=== PATIENT | female | born 1945 | race Caucasian/White ===

== ENCOUNTER 2016-12-26 08:41 | Outpatient (CLI) | payer MEDICARE, BC ==
[2016-12-26 17:39] LABS: BASOPHILS # (AUTO) 0.1 10^3/uL (0.0-0.1); BASOPHILS % (AUTO) 0.8 %; EOSINOPHILS # (AUTO) 0.3 10^3/uL (0.0-0.7); EOSINOPHILS % (AUTO) 3.9 %; LYMPHOCYTES # (AUTO) 1.9 10^3/uL (1.5-3.5); LYMPHOCYTES % (AUTO) 24.4 %; MEAN CORPUSCULAR HEMOGLOBIN 29.5 pg (27.0-31.0); MEAN CORPUSCULAR HGB CONC 32.4 g/dL (32.0-36.0); MEAN CORPUSCULAR VOLUME 90.9 fL (81.0-99.0); MEAN PLATELET VOLUME 9.7 fL (7.9-10.8); MONOCYTES # (AUTO) 0.7 10^3/uL (0.0-1.0); MONOCYTES % (AUTO) 9.4 %; NEUTROPHILS # (AUTO) 4.8 10^3/uL (1.5-6.6); NEUTROPHILS % (AUTO) 61.5 %; NUCLEATED RED BLOOD CELLS AUTO 0.1 /100WBC; UNCORRECTED WHITE BLOOD COUNT 7.7 x10^3/uL; WHITE BLOOD COUNT 7.7 x10^3/uL (4.8-10.8)
[2016-12-26 18:25] LABS: ALBUMIN/GLOBULIN RATIO 1.1 (1.0-2.2); BILIRUBIN,TOTAL 0.6 mg/dL (0.2-1.0); BUN - BLOOD UREA NITROGEN 9 mg/dL (6-20); CALCIUM 9.2 mg/dL (8.5-10.3); CARBON DIOXIDE - CO2 31 mmol/L (21-32); CHLORIDE 103 mmol/L (101-111); CHOL/HDL RATIO 2.7 (<4.4); CHOLESTEROL 167 mg/dL; CREATININE 0.7 mg/dL (0.4-1.0); GFR - MDRD 82 (>89); GLUCOSE 109 mg/dL (70-100); HDL CHOLESTEROL 63 mg/dL; LDL/HDL RATIO 1.3 (<4.4); POTASSIUM 3.7 mmol/L (3.5-5.0); SODIUM 141 mmol/L (135-145); TOTAL PROTEIN 7.3 g/dL (6.7-8.2); TRIGLYCERIDES 107 mg/dL; VLDL CHOLESTEROL 21 mg/dL
== END 2016-12-26 08:42 | disposition home or self-care (01) ==
LOC: LAB.F 08:41
PROVIDERS: ATTEND Physician Assistant Medical
DX: Z51.81 Encounter for therapeutic drug level monitoring (principal); Z13.9 Encounter for screening, unspecified
CPT/HCPCS: 36415; 80053; 80061; 82670; 84443; 85025

== ENCOUNTER 2017-08-15 08:35 | Outpatient (CLI) | payer MEDICARE, BC ==
--- NOTE | 2017-08-15 12:24 | Ultrasound Report ---
RIGHT BREAST ULTRASOUND: 08/15/2017 CLINICAL INDICATION: Palpable abnormality right axilla. TECHNIQUE: Real-time scanning was performed with veterans contact representative static images obtained. FINDINGS: Ultrasound of the palpable abnormality identified by the patient was performed. At this site, in the right axilla, there is a hypoechoic nodule in the subcutaneous fat, measuring 5 x 6 x 4 mm. It does appear to abut the dermis, but no definite dermal tail is identified. While this may represent a sebaceous cyst, biopsy is recommended. The nodule appears amenable to ultrasound-guided core needle biopsy. IMPRESSION: SUSPICIOUS ABNORMALITY, WITH A HYPOECHOIC NODULE CORRELATING WITH THE PALPABLE ABNORMALITY. RECOMMENDATION: Biopsy. The nodule appears amenable to ultrasound-guided core needle biopsy. BIRADS CATEGORY 4 - SUSPICIOUS ABNORMALITY. Results and recommendations discussed with the patient at the time of the examination, and called to the office of Amber Grande PA-C on 08/15/2017. Biopsy is scheduled for 08/26/2017 at 1 p.m. TD: 08/15/2017 12:23
--- NOTE | 2017-08-15 12:28 | Mammography Report ---
DIAGNOSTIC BILATERAL MAMMOGRAM: 08/15/2017 CLINICAL INDICATION: Palpable abnormality right axilla. TECHNIQUE: Bilateral CC, laterally exaggerated CC, MLO, right true lateral views. COMPARISON: 11/14/2015, 11/16/2014, 09/23/2013, 05/21/2012, 03/07/2011, 12/12/2009. FINDINGS: The breasts demonstrate fatty replacement bilaterally. Coarse and punctate, typically benign calcifications are present. A marker was placed at the site of palpable abnormality identified by the patient in the right axilla. At this site, there is a circumscribed nodule, without associated calcification. Please also refer to right breast ultrasound of the same day. No mammographically suspicious findings are identified in the left breast. IMPRESSION: SUSPICIOUS ABNORMALITY, WITH A SOLID HYPOECHOIC NODULE ON ULTRASOUND CORRELATING WITH THE PALPABLE ABNORMALITY. RECOMMENDATION: Biopsy. The nodule appears amenable to ultrasound-guided core needle biopsy. BIRADS CATEGORY 4 - SUSPICIOUS ABNORMALITY. Results and recommendations discussed with the patient at the time of the examination, and called to the office of Amber Grande PA-C on 08/15/2017. Biopsy is scheduled for 08/26/2014 at 1 p.m. STANDARD QUALIFYING STATEMENTS: 1. This examination was reviewed with the aid of Computer-Aided Detection (CAD). 2. A negative or benign imaging report should not delay biopsy if clinically suspicious findings are present. Consider surgical consultation if warranted. More than 5% of cancers are not identified by imaging. 3. Dense breasts may obscure an underlying neoplasm. TD: 08/15/2017 12:27
== END 2017-08-15 08:36 | disposition home or self-care (01) ==
LOC: DI 08:35
PROVIDERS: ATTEND Physician Assistant Medical
DX: N63.31 Unspecified lump in axillary tail of the right breast (principal)
CPT/HCPCS: 76642; 77066

== ENCOUNTER 2017-08-26 12:43 | Outpatient (CLI) | payer MEDICARE, BC ==
--- NOTE | 2017-08-26 14:54 | Ultrasound Report ---
ULTRASOUND-GUIDED CORE NEEDLE BIOPSY RIGHT BREAST: 08/26/2017 CLINICAL INDICATION: Subdermal nodule right axilla. TECHNIQUE/FINDINGS: Informed consent was obtained. Using standard aseptic technique, both 1% buffered lidocaine and Sensorcaine were injected into the right breast for local anesthesia. A small mami was made in the skin with a #11 blade. A 12-gauge Celero vacuum-assisted device was used to obtain three specimens. A Celero marker was placed into the biopsy cavity under ultrasound guidance. The patient was taken to a separate mammography machine and a two-view digital mammogram was performed, documenting the marker placement and a small post-biopsy hematoma. The wound was dressed and ice applied. The patient was observed for approximately 15 minutes, then was discharged from [facility] in good condition following instructions on wound care and obtaining biopsy results. The tissue was sent for histologic analysis. IMPRESSION: 1. ULTRASOUND-GUIDED BIOPSY OF THE RIGHT BREAST. 2. AN ADDENDUM WILL BE MADE TO THIS REPORT WHEN PATHOLOGY IS REVIEWED TO ESTABLISH CONCORDANCE. TD: 08/26/2017 14:53
[2017-08-26 15:03] VITALS: BP 143/61
[2017-08-26] MEDS ORDERED: BUPIVACAINE 0.5%-EPI 1:200000 PF 30 ML VIAL SUBQ ONE (15:46)
[2017-08-26] MEDS ORDERED: BUFFERED LIDOCAINE 10 ML SYRINGE IU ONE (15:46)
== END 2017-08-26 12:44 | disposition home or self-care (01) ==
LOC: DI 12:43
PROVIDERS: ATTEND Physician Assistant Medical
DX: R92.8 Other abnormal and inconclusive findings on diagnostic imaging of breast (principal)
CPT/HCPCS: 19083

== ENCOUNTER 2017-12-03 09:40 | Emergency (ER) | payer MEDICARE, BC ==
--- NOTE | 2017-12-03 12:46 | ED Physician Documentation ---
History of Present Illness - Stated complaint Stated Complaint: CONSTIPATION - Chief complaint Chief Complaint: General - Additonal information Additional information: hx from pt 72 f prior abd and rectal surgeries also takes vicodin takes daily metamucil and [place] Nasra no BM for 8 days has tried numerous oral laxatives including mag citrate and polyglycol tried to disimpact herself but no BM in vault she fears obstruction Review of Systems Constitutional: denies: Fever Cardiac: denies: Chest pain / pressure Respiratory: denies: Dyspnea GI: reports: Abdominal Pain, Nausea, Constipation. denies: Vomiting Immunocompromised: denies: Immunocompromised PD PAST MEDICAL HISTORY - Past Medical History Past Medical History: Yes Cardiovascular: Hypertension, High cholesterol, Other Respiratory: None Endocrine/Autoimmune: None GI: GERD : None HEENT: None Psych: Other Musculoskeletal: Osteoarthritis, Chronic back pain, Other Derm: Other - Past Surgical History Past Surgical History: Yes General: Appendectomy, Colonoscopy, Other HEENT: Cataracts - Present Medications Home Medications: Ambulatory Orders Medication Instructions Recorded Confirmed Estrogen,Con/M-Progest Acet 1 each PO DAILY 03/24/13 04/10/15 [Prempro 0.3 mg-1.5 mg Tablet] HYDROcod/ACETAM 5/325 [Vicodin 1 each PO Q4HR 03/24/13 04/10/15 5/325] Pramipexole Di-HCl [Mirapex] 0.75 mg PO DAILY 03/24/13 04/10/15 Simvastatin 20 mg PO HS 03/24/13 04/10/15 Esomeprazole Magnesium [Nexium] 20 mg PO DAILY 03/25/13 04/10/15 Glycerin Adult Supp 1 each PA ONCE PRN #10 supp 12/03/17 Peg 3350/Na Sulf,Bicarb,Cl/KCl 4,000 ml PO ONCE #1 bottle 12/03/17 [Golytely] - Allergies Allergies/Adverse Reactions: Allergies Allergy/AdvReac Type Severity Reaction Status Date / Time erythromycin base Allergy Intermediate Emesis Verified 12/03/17 09:59 [Erythromycin Base] Penicillins Allergy Mild Rash Verified 12/03/17 09:59 atorvastatin calcium * AdvReac Severe having Verified 12/03/17 09:59 [From Lipitor] more PVC's on cardiac rhythm - Social History Does the pt smoke?: No Smoking Status: Never smoker Does the pt drink ETOH?: No Does the pt have substance abuse?: No - Immunizations Immunizations are current?: Yes - POLST Patient has POLST: No PD ED PE NORMAL - Vitals Vital signs reviewed: Yes - Cardiac Cardiac: RRR - Respiratory Respiratory: No respiratory distress, Clear bilaterally - Abdomen Abdomen: Soft, Other (midl TTP non focal non peritoneal, + BS) - Rectal Rectal: Other (no stool in vault, occult blood neg QC passed) Results - Vitals Vitals: Vital Signs - 24 hr 12/03/17 12/03/17 12/03/17 09:56 12:22 14:34 Temperature 37.1 C Heart Rate 94 86 79 Respiratory 16 14 16 Rate Blood Pressure 145/65 H 188/77 H 158/85 H O2 Saturation 95 99 100 Oxygen O2 Source Room air - Rads (name of study) CT AP Radiology: See rad report (small fat containing umbilical hernia, steatosis, no SBO or perf, not that much stool in the vault) PD MEDICAL DECISION MAKING - ED course ED course: CT AP shows no acute process rx golytely and per pt req gave relistor which she states has worked well for her previously and very clearly emphasized need for a colonsocopy - Sepsis Event Vital Signs: Vital Signs - 24 hr 12/03/17 12/03/17 12/03/17 09:56 12:22 14:34 Temperature 37.1 C Heart Rate 94 86 79 Respiratory 16 14 16 Rate Blood Pressure 145/65 H 188/77 H 158/85 H O2 Saturation 95 99 100 Oxygen O2 Source Room air Departure - Departure Disposition: 01 Home, Self Care Clinical Impression: Constipation Qualifiers: Constipation type: unspecified constipation type Qualified Code(s): K59.00 - Constipation, unspecified Condition: Good Instructions: ED Constipation Follow-Up: Amber Grande PA-C [Primary Care Provider] - Prescriptions: Glycerin Adult Supp 1 each PA ONCE PRN #10 supp PRN Reason: to help pass hard painful BM Peg 3350/Na Sulf,Bicarb,Cl/KCl [Golytely] 4,000 ml PO ONCE #1 bottle Comments: The CT scans showed a small umbilical hernia but it is not causing any blockages. The only abnormality was a fatty liver - this is not dangerous now but has to potential to progress to liver disease and so I recommend you avoid alcohol and tylenol I have prescribed Golytely and suppositories for you to use at home to help move your bowels
--- NOTE | 2017-12-03 13:40 | CT Report ---
Procedure Date: 12/03/2017 Accession Number: [id number] / [id number] Procedure: CT - Abdomen/Pelvis W/O CPT Code: FULL RESULT: EXAM: CT ABDOMEN AND PELVIS EXAM DATE: 12/03/2017 01:29 PM. CLINICAL HISTORY: No BM ? SBO. COMPARISONS: ABD/PEL 05/18/2008 10:57 AM. TECHNIQUE: Routine helical CT imaging was performed through the abdomen and pelvis. IV contrast: No. Enteric contrast: No. Reconstructions: Coronal and sagittal. In accordance with CT protocol optimization, one or more of the following dose reduction techniques were utilized for this exam: automated exposure control, adjustment of mA and/or KV based on patient size, or use of iterative reconstructive technique. FINDINGS: Lung Bases: Unremarkable. Liver: Liver parenchyma is low in density consistent with steatosis. Gallbladder/Bile Ducts: Unremarkable. Spleen: Normal in size and contour. Pancreas: Normal in size and contour. Adrenal Glands: Normal. Kidneys: No urolithiasis or hydronephrosis. Peritoneal Cavity/Bowel: Normal. No free fluid, free air or adenopathy. No masses or acute inflammatory process. There is a small fat-containing umbilical hernia. The appendix is not seen. No positive findings of acute appendicitis. Pelvic Organs: Normal. The bladder and visualized pelvic organs are within normal limits. Vasculature: No aneurysms or other significant abnormality. Bones: No significant abnormality. Other: None. IMPRESSION: 1. No dilated bowel loops. No evidence of bowel obstruction or constipation. 2. Steatosis of the liver. 3. Small fat-containing umbilical hernia. RADIA
[2017-12-03 14:35] VITALS: BP 158/85
[2017-12-03] MEDS ORDERED: METHYLNALTREXONE 12 MG/0.6 ML VIAL SUBQ ONE (15:00)
== END 2017-12-03 15:17 | disposition home or self-care (01) ==
LOC: ED 09:40
DX: K59.00 Constipation, unspecified (principal); K42.9 Umbilical hernia without obstruction or gangrene; I10 Essential (primary) hypertension; E78.00 Pure hypercholesterolemia, unspecified; K21.9 Gastro-esophageal reflux disease without esophagitis; M19.90 Unspecified osteoarthritis, unspecified site
CPT/HCPCS: 74176; 96372; 99283; J2212

== ENCOUNTER 2017-12-17 14:49 | Outpatient (CLI) | payer MEDICARE, BC ==
--- NOTE | 2017-12-17 16:58 | XRAY Report ---
Procedure Date: 12/17/2017 Accession Number: [id number] / [id number] Procedure: XR - Knee 4 View LT CPT Code: FULL RESULT: EXAM: LEFT KNEE RADIOGRAPHY EXAM DATE: 12/17/2017 03:48 PM. CLINICAL HISTORY: Contusion of left knee, initial encounter. COMPARISON: None. TECHNIQUE: 3 views. FINDINGS: Bones: Normal. No fractures or bone lesions. Joints: Mild tricompartmental joint space loss which is most pronounced in the medial femorotibial compartment. No joint effusion. Soft Tissues: Moderate soft tissue swelling in the suprapatellar region. IMPRESSION: Mild degenerative changes and soft tissue swelling. RADIA
--- NOTE | 2017-12-17 16:59 | XRAY Report ---
Procedure Date: 12/17/2017 Accession Number: [id number] / [id number] Procedure: XR - Tib/Fib LT CPT Code: FULL RESULT: EXAM: LEFT TIBIA/FIBULA RADIOGRAPHY EXAM DATE: 12/17/2017 03:48 PM. CLINICAL HISTORY: Contusion of left knee, initial encounter. COMPARISON: LEG LOWER LT 04/22/2014. TECHNIQUE: 2 views. FINDINGS: Bones: Normal. No fracture or bone lesion. Joints: The visualized knee and ankle joints are normal aside from mild degenerative changes in the knee. No effusions. Soft Tissues: Normal. No soft tissue swelling. IMPRESSION: No fracture or dislocation. RADIA
== END 2017-12-17 14:50 | disposition home or self-care (01) ==
LOC: DI 14:49
PROVIDERS: ATTEND Physician Assistant Medical
DX: S80.02XA Contusion of left knee, initial encounter (principal)

== ENCOUNTER 2018-01-03 08:20 | Outpatient (CLI) | payer MEDICARE, BC ==
[2018-01-03 10:08] LABS: BASOPHILS # (AUTO) 0.1 10^3/uL (0.0-0.1); BASOPHILS % (AUTO) 0.7 %; EOSINOPHILS # (AUTO) 0.2 10^3/uL (0.0-0.7); EOSINOPHILS % (AUTO) 3.1 %; HGB - HEMOGLOBIN 12.3 g/dL (12.0-16.0); LYMPHOCYTES # (AUTO) 1.8 10^3/uL (1.5-3.5); LYMPHOCYTES % (AUTO) 23.6 %; MEAN CORPUSCULAR HEMOGLOBIN 27.2 pg (27.0-31.0); MEAN CORPUSCULAR HGB CONC 31.9 g/dL (32.0-36.0); MEAN CORPUSCULAR VOLUME 85.3 fL (81.0-99.0); MEAN PLATELET VOLUME 9.1 fL (7.9-10.8); MONOCYTES # (AUTO) 0.7 10^3/uL (0.0-1.0); MONOCYTES % (AUTO) 9.3 %; NEUTROPHILS # (AUTO) 4.8 10^3/uL (1.5-6.6); NEUTROPHILS % (AUTO) 63.3 %; PLT - PLATELET COUNT 260 10^3/uL (130-450); RED BLOOD COUNT 4.52 10^6/uL (4.20-5.40); RED CELL DISTRIBUTION WIDTH 14.3 % (12.0-15.0); WHITE BLOOD COUNT 7.5 x10^3/uL (4.8-10.8)
[2018-01-03 10:21] LABS: ALBUMIN 3.8 g/dL (3.2-5.5); ALKALINE PHOSPHATASE 93 IU/L (42-121); ALT ALANINE AMINOTRANSFERASE 27 IU/L (10-60); AST ASPARTATE AMINOTRANSFERASE 30 IU/L (10-42); BILIRUBIN,TOTAL 0.6 mg/dL (0.2-1.0); BUN - BLOOD UREA NITROGEN 11 mg/dL (6-20); CALCIUM 9.1 mg/dL (8.5-10.3); CARBON DIOXIDE - CO2 32 mmol/L (21-32); CHLORIDE 99 mmol/L (101-111); CHOL/HDL RATIO 3.2 (<4.4); CHOLESTEROL 156 mg/dL; CREATININE 0.8 mg/dL (0.4-1.0); GFR - MDRD 71 (>89); GLUCOSE 113 mg/dL (70-100); HDL CHOLESTEROL 49 mg/dL; LDL CHOLESTEROL,CALCULATED 83 mg/dL; LDL/HDL RATIO 1.7 (<4.4); SODIUM 137 mmol/L (135-145); TOTAL PROTEIN 7.6 g/dL (6.7-8.2); VLDL CHOLESTEROL 24 mg/dL
== END 2018-01-03 08:21 | disposition home or self-care (01) ==
LOC: LAB.F 08:20
PROVIDERS: ATTEND Physician Assistant Medical
DX: Z51.81 Encounter for therapeutic drug level monitoring (principal); E78.5 Hyperlipidemia, unspecified; E55.9 Vitamin D deficiency, unspecified
CPT/HCPCS: 36415; 80053; 80061; 82306; 83721; 85025

== ENCOUNTER 2018-05-24 12:25 | Outpatient (CLI) | payer MEDICARE, BC | END 2018-05-24 12:26 | disposition home or self-care (01) | LOC: RT 12:25 | PROVIDERS: ATTEND Obstetrics & Gynecology Gynecologic Oncology | DX: Z01.810 Encounter for preprocedural cardiovascular examination (principal); D07.1 Carcinoma in situ of vulva | CPT/HCPCS: 93005 ==

== ENCOUNTER 2018-09-15 08:53 | Day surgery (SDC) | payer MEDICARE, BC ==
[2018-09-15] MEDS ORDERED: LACTATED RINGERS 1,000 ML IV ONE (09:30)
[2018-09-15] MEDS ORDERED: MIDAZOLAM 2 MG/2 ML VIAL IVP ONE (10:21)
[2018-09-15] MEDS ORDERED: fentaNYL 250 MCG/5 ML VIAL IVP ONE (10:21)
[2018-09-15 11:21] VITALS: BP 143/65
== END 2018-09-15 08:54 | disposition home or self-care (01) ==
LOC: SDS 08:53
PROVIDERS: ATTEND Surgery
PROC: 0DBK8ZZ Excision of Ascending Colon, Via Natural or Artificial Opening Endoscopic (ICD-10-PCS; principal; 2018-09-15 11:00)
DX: Z12.11 Encounter for screening for malignant neoplasm of colon (principal); D12.2 Benign neoplasm of ascending colon; K64.8 Other hemorrhoids; E66.9 Obesity, unspecified; Z68.41 Body mass index [BMI] 40.0-44.9, adult; I49.3 Ventricular premature depolarization; Z87.891 Personal history of nicotine dependence
CPT/HCPCS: 45380; J3010; J7120

== ENCOUNTER 2019-02-08 09:23 | Outpatient (CLI) | payer MEDICARE, BC ==
--- NOTE | 2019-02-09 00:33 | XRAY Report ---
Reason: R06.02 Procedure Date: 02/08/2019 Accession Number: [id number] / [id number] Procedure: XR - Chest 2 View X-Ray CPT Code: 41812 FULL RESULT: EXAM: CHEST RADIOGRAPHY EXAM DATE: 02/08/2019 10:05 AM. CLINICAL HISTORY: Shortness of breath. COMPARISON: CHEST 2 VIEW PA/LAT 11/14/2015 10:42 AM. TECHNIQUE: 2 views. FINDINGS: Lungs/Pleura: New large right upper lobe mass measuring 9.2 x 7.6 cm concerning for primary lung malignancy. Recommend a chest CT with IV contrast to further evaluate. No pleural effusion or pneumothorax. Mediastinum: Normal heart size. IMPRESSION: New large right upper lobe mass measuring 9.2 x 7.6 cm concerning for primary lung malignancy. Recommend a chest CT with IV contrast to further evaluate. RADIA
== END 2019-02-08 09:24 | disposition home or self-care (01) ==
LOC: LAB 09:23
PROVIDERS: ATTEND Physician Assistant Medical
DX: R91.8 Other nonspecific abnormal finding of lung field (principal); Z79.890 Hormone replacement therapy
CPT/HCPCS: 36415; 71046; 82670

== ENCOUNTER 2019-02-13 10:55 | Outpatient (CLI) | payer MEDICARE, BC ==
[2019-02-13] MEDS ORDERED: IOVERSOL 320 100 ML VIAL IVP ONE ×2 (11:35→13:15)
[2019-02-13 11:38] LABS: CALCIUM 9.4 mg/dL (8.5-10.3); CREATININE 0.7 mg/dL (0.4-1.0)
--- NOTE | 2019-02-13 12:50 | CT Report ---
Reason: LUNG MASS, SHORTNESS OF BREATH Procedure Date: 02/13/2019 Accession Number: [id number] / [id number] Procedure: CT - CHEST W CPT Code: FULL RESULT: EXAM: CT CHEST EXAM DATE: 02/13/2019 12:03 PM. CLINICAL HISTORY: LUNG MASS, SHORTNESS OF BREATH. COMPARISONS: CHEST 2 VIEW 02/08/2019 9:58 AM CHEST 2 VIEW PA/LAT 11/14/2015 10:42 AM. TECHNIQUE: Routine helical CT imaging was performed through the chest. IV contrast: None. Reconstructions: Coronal and sagittal. In accordance with CT protocol optimization, one or more of the following dose reduction techniques were utilized for this exam: automated exposure control, adjustment of mA and/or KV based on patient size, or use of iterative reconstructive technique. FINDINGS: Lungs/Pleura: Large solid right upper lobe mass measuring 8.4 x 5.8 cm. Lesion abuts on anterior aspect of right major fissure and also extends to posterior pleural contour. Hazy and reticular densities peripheral to mass are probably from atelectasis. 2 mm perifissural nodule along anterior aspect of right upper major fissure. Mediastinum: Moderate coronary arterial calcifications. No adenopathy or masses. The heart and great vessels are normal. Bones: Lower thoracic and lumbar spine degenerative changes. Visualized Abdomen: Fatty liver. Normal adrenal glands. Other: None. IMPRESSION: 1. Large 8.4 cm solid right upper lobe mass is most compatible with malignancy. 2. Fatty liver. RADIA The call report notification system was initiated by Dr. Vasiliy Saldaña at 12:49 PM on 02/13/2019. ADDENDUM: 02/13/19 12:55 Majority of liver was visualized. Diffuse fatty infiltration can limit the sensitivity in detecting liver lesions. No metastatic liver lesions are identified. The above call report findings were discussed with Amber Grande by Dr. Vasiliy Saldaña at 12:55 PM on 02/13/2019.
== END 2019-02-13 10:56 | disposition home or self-care (01) ==
LOC: DI 10:55
PROVIDERS: ATTEND Physician Assistant Medical
DX: Z01.812 Encounter for preprocedural laboratory examination (principal); R91.1 Solitary pulmonary nodule; R06.02 Shortness of breath; K76.0 Fatty (change of) liver, not elsewhere classified
CPT/HCPCS: 36415; 71260; 80048; Q9967

== ENCOUNTER 2019-02-24 14:26 | Outpatient (CLI) | payer MEDICARE, BC ==
[2019-02-24] MEDS ORDERED: IOVERSOL 320 100 ML VIAL IVP ONE ×2 (14:44→19:21)
[2019-02-24] MEDS ORDERED: IOVERSOL 320 50 ML VIAL ONE (14:45)
[2019-02-24] MEDS ORDERED: IOVERSOL 320 50 ML VIAL PO ONE (19:21)
--- NOTE | 2019-02-25 04:43 | CT Report ---
Reason: LUNG CANCER Procedure Date: 02/24/2019 Accession Number: [id number] / [id number] Procedure: CT - SOFT TISSUE NECK W CPT Code: FULL RESULT: EXAM: CT SOFT TISSUE NECK WITH CONTRAST EXAM DATE: 02/24/2019 04:01 PM HISTORY: Lung cancer. COMPARISONS: CHEST W/ 02/24/2019 3:40 PM. TECHNIQUE: Routine soft tissue neck CT protocol with contrast. Reconstructions: Coronal and sagittal. IV contrast: 100 mL Optiray 320. In accordance with CT protocol optimization, one or more of the following dose reduction techniques were utilized for this exam: automated exposure control, adjustment of mA and/or KV based on patient size, or use of iterative reconstructive technique. FINDINGS: Visualized Intracranial Contents: Unremarkable. Orbits: Postsurgical changes from cataract extractions are noted in the globes. Sinuses: Visualized paranasal sinuses and mastoid air cells are clear. Oral cavity: The visualized oral cavity is unremarkable. The floor of the mouth is symmetric. Pharynx: Pharyngeal mucosa is unremarkable. The infratemporal fossa, parapharyngeal spaces, and retropharyngeal space are unremarkable. The base of the tongue is symmetric and unremarkable. The airway is patent. Larynx: Larynx and supraglottic airway are patent without mass lesion. Vocal cords are symmetric. The visualized trachea is unremarkable. Parotid and Submandibular Glands: Symmetric and unremarkable. Lymph Nodes: No enlarged lymph nodes are identified in the cervical, supraclavicular, and visualized superior mediastinal regions. Soft tissues: Soft tissues are unremarkable. No mass lesion or abnormal enhancement. Vascular Structures: Patent. Thyroid Gland: Normal. Lung: A large mass is partially seen in the right upper lung. Bones: The mass does not appear to extend into the adjacent thoracic spine. Moderate degenerative changes are present in the lower cervical spine. No osteoblastic or osteolytic lesions are seen. IMPRESSION: 1. A large mass is partially seen in the right upper lung. 2. No evidence of extension to the adjacent thoracic spine is seen on this exam. 3. No evidence of osteoblastic or osteolytic metastases in the visualized cervical and thoracic spine. 4. No evidence of pathologic lymphadenopathy in the neck. RADIA
--- NOTE | 2019-02-25 17:38 | CT Report ---
Reason: LUNG CANCER Procedure Date: 02/24/2019 Accession Number: [id number] / [id number] Procedure: CT - CHEST W CPT Code: FULL RESULT: EXAM: CT CHEST EXAM DATE: 02/24/2019 04:01 PM. CLINICAL HISTORY: LUNG CANCER. Follow-up COMPARISONS: CHEST W/ 02/13/2019 11:56 AM. TECHNIQUE: Routine helical CT imaging was performed through the chest. IV contrast: 100 cc Optiray 320. Reconstructions: Coronal and sagittal. In accordance with CT protocol optimization, one or more of the following dose reduction techniques were utilized for this exam: automated exposure control, adjustment of mA and/or KV based on patient size, or use of iterative reconstructive technique. FINDINGS: Lungs/Pleura: Stable appearance right upper lobe mass 8.4 x 5.8 cm axial, 7.7 cm vertical extending to the posterior pleural contour and abutting the right major fissure. Adjacent mild compressive atelectasis and 2 mm perifissural nodule 4/137. Additional 5 mm right lower lobe nodule 4/172. Grossly clear left lung.. Mediastinum: Coronary artery calcification. No adenopathy or masses. The heart and great vessels are normal. Bones: Spine degenerative changes, stable. Included upper Abdomen: Fatty liver without focal lesion. Unremarkable adrenal glands Other: None. IMPRESSION: 8.4 x 5.8 x 7.7 cm right upper lobe mass consistent with malignancy, similar to 02/13/2019. 2 subcentimeter nodules are also seen in the right lung. Clear left lung. No mediastinal adenopathy. RADIA
--- NOTE | 2019-02-25 17:45 | CT Report ---
Reason: LUNG CANCER Procedure Date: 02/24/2019 Accession Number: [id number] / [id number] Procedure: CT - Abdomen/Pelvis W CPT Code: FULL RESULT: EXAM: CT ABDOMEN AND PELVIS EXAM DATE: 02/24/2019 04:01 PM. CLINICAL HISTORY: LUNG CANCER. COMPARISONS: CHEST W/ 02/24/2019 3:40 PM ABDOMEN/PELVIS W/O 12/03/2017 1:16 PM. TECHNIQUE: Routine helical CT imaging was performed through the abdomen and pelvis. IV contrast: OPTI 320 100ML. Enteric contrast: Yes. Reconstructions: Coronal and sagittal. In accordance with CT protocol optimization, one or more of the following dose reduction techniques were utilized for this exam: automated exposure control, adjustment of mA and/or KV based on patient size, or use of iterative reconstructive technique. FINDINGS: Lung Bases: No pleural effusion. Liver: Diffuse fatty infiltration. No masses. Gallbladder/Bile Ducts: Unremarkable. Spleen: Normal. Pancreas: Normal. Adrenal Glands: Normal. Kidneys: Normal. No masses or hydronephrosis. Peritoneal Cavity/Bowel: No free fluid, free air or adenopathy. No masses or acute inflammatory process. Tiny fat-containing umbilical hernia . Pelvic Organs: Normal. The bladder and visualized pelvic organs are within normal limits. Vasculature: Atherosclerotic calcification. No aneurysms or other significant abnormality. Bones: Degenerative change in the spine with grade 1 retrolisthesis of L2 with respect to L3. Mild levoscoliosis. Other: None. IMPRESSION: No findings of metastatic disease in the abdomen or pelvis. Fatty liver. Other incidental findings as above. RADIA
== END 2019-02-24 14:27 | disposition home or self-care (01) ==
LOC: DI 14:26
PROVIDERS: ATTEND Internal Medicine
DX: C34.11 Malignant neoplasm of upper lobe, right bronchus or lung (principal); R49.0 Dysphonia; R91.8 Other nonspecific abnormal finding of lung field; K76.0 Fatty (change of) liver, not elsewhere classified
CPT/HCPCS: 70491; 71260; 74177; Q9967

== ENCOUNTER 2019-02-28 13:23 | Outpatient (CLI) | payer MEDICARE, BC ==
[2019-02-28] MEDS ORDERED: GADOBUTROL 10 MMOL/10 ML VIAL ONE (13:31)
--- NOTE | 2019-03-01 06:56 | MRI Report ---
Reason: STAGE III LUNG CANCER Procedure Date: 02/28/2019 Accession Number: [id number] / [id number] Procedure: MRI - Brain W/WO CPT Code: FULL RESULT: EXAM: MRI BRAIN WITHOUT AND WITH CONTRAST EXAM DATE: 02/28/2019 02:22 PM. CLINICAL HISTORY: Stage III lung cancer, evaluate for intracranial metastasis. COMPARISON: None. TECHNIQUE: Multiplanar, multisequence T1-weighted and fluid-sensitive MR sequences of the brain were performed before and after administration of intravenous contrast. Sequences optimized for routine evaluation. Other: None. IV Contrast: Without and with 10 mL IV Gadavist. Note that the coronal and sagittal T1-weighted contrast-enhanced MRI images of the brain include the entire head. 100 axial contrast-enhanced T1-weighted images are submitted but these do not extend all the way through the top of the brain, ending just above the tops of the lateral ventricles. The most superior image (series 1002) stops about 2.4 cm below the top of the brain. Similar extent of brain coverage with the unenhanced precontrast axial T1-weighted sequence also, series 402. FINDINGS: Brain Volume: Normal for age. Parenchyma: No restricted diffusion to suggest an acute or recent ischemic infarct. No cerebral hemorrhage. No mass effect, midline shift or abnormal subdural fluid collection. There are a few small scattered foci of nonspecific white matter T2 hyperintensity in both cerebral hemispheres, likely attributable to aging and minimal chronic microangiopathy. There is no evidence for abnormal brain enhancement, mass or nodule, there are no findings of intracranial-enhancing metastatic disease. Ventricles/Cisterns: No hydrocephalus. No abnormal extra-axial fluid collection or hemorrhage. Orbits: Previous bilateral lens extractions. Sella Turcica: The pituitary gland, cavernous sinuses, suprasellar cistern and optic chiasm are unremarkable. IAC: Symmetric and unremarkable. Vasculature: Normal signal flow void is seen in the major arterial structures at the skull base. The dural sinuses are patent and enhance normally. Sinuses: Clear sinuses. Nonspecific small foci of patchy inferior right mastoid fluid signal. Bones: No focal pathologic appearing marrow signal changes. Other: None. IMPRESSION: 1. No evidence for intracranial metastasis. 2. No acute abnormality. There are mild chronic-appearing changes of aging. RADIA
== END 2019-02-28 13:24 | disposition home or self-care (01) ==
LOC: DI 13:23
PROVIDERS: ATTEND Internal Medicine
DX: C34.90 Malignant neoplasm of unspecified part of unspecified bronchus or lung (principal); R91.8 Other nonspecific abnormal finding of lung field; R49.0 Dysphonia
CPT/HCPCS: 70553; A9585

== ENCOUNTER 2019-03-17 13:24 | Outpatient (CLI) | payer MEDICARE, BC ==
[~2019-03-17 13:24] MED LIST: ALBUTEROL NEB 2.5 MG/3 ML INH SCH
== END 2019-03-17 13:25 | disposition home or self-care (01) ==
LOC: RT 13:24
PROVIDERS: ATTEND Surgery
DX: C34.11 Malignant neoplasm of upper lobe, right bronchus or lung (principal)
CPT/HCPCS: 94060; 94729